=== PATIENT | female | born 1990 | race Asian ===

== ENCOUNTER 2018-03-31 18:13 | Inpatient (IN) | payer OTHER ==
[2018-03-31] MEDS ORDERED: LIDOCAINE 1% 300 MG/30 ML SDV SC PRN (19:47)
[2018-03-31] MEDS ORDERED: MISOPROSTOL 200 MCG TAB PR PRN (19:47)
[2018-03-31] MEDS ORDERED: OXYTOCIN/RINGERS LACTATE 1,000 ML IV PRN (19:47)
[2018-03-31] MEDS ORDERED: IBUPROFEN 600 MG TAB PO PRN (19:47)
[2018-03-31] MEDS ORDERED: EPSOM SALT 454 GM TP PRN (19:47)
[2018-03-31] MEDS ORDERED: LR 1,000 ML IV PRN (19:47)
[2018-03-31] MEDS ORDERED: OLIVE OIL 118 ML BTL MISC PRN (19:47)
[2018-03-31] MEDS ORDERED: TERBUTALINE SULFATE 1 MG/ML VIAL IV PRN (19:47)
[2018-03-31] MEDS ORDERED: LIDOCAINE 1% 300 MG/30 ML SDV ONE (19:57)
[2018-03-31] MEDS ORDERED: AMMONIA AROMATIC 1 EACH AMP IH ONE (19:58)
[2018-03-31] MEDS ORDERED: OXYTOCIN 10 UNIT/ML VIAL ONE (19:58)
[2018-03-31] MEDS ORDERED: MISOPROSTOL 200 MCG TAB ONE (19:58)
[2018-03-31] MEDS ORDERED: TERBUTALINE SULFATE 1 MG/ML VIAL ONE (19:58)
[2018-03-31] MEDS ORDERED: OLIVE OIL 118 ML BTL ONE (19:58)
[2018-03-31 20:08] LABS: PLATELET COUNT 154 10^3/uL (150-400)
--- NOTE | 2018-03-31 21:46 | PDGENHP ---
History and Physical - Chief Complaint SROM, labor - History of Present Illness 28 yo (one TAB in 2013) called this evening complaining of gush of clear fluid around 1700 and some new spotting noticed around that same time. She had been feeling more pelvic pressure throughout the day today. GBS negative. Presented to L&D and was found to be 5cm dilated. Uncomplicated first - Varicella non-immune. Labs: B positive Ab negative RPR NR Rubella IMMUNE Hep B neg HIV neg Standard negative Varicella NON-immune GC/C neg AFP normal Innatal normal XY male Glucola 123 GBS NEGATIVE History Information - Allergies/Home Medication List Allergies/Adverse Reactions: No Known Allergies Allergy (Unverified 03/31/18 18:19) I have personally reviewed and updated: family history, medical history, social history, surgical history - Past Medical History no pertinent PMH - Surgical History Additional surgical history: Elective 2013 - Family History Positive for: non-pertinent - Social History Smoking Status: Never smoked Alcohol Use: None Review of Systems Review of Systems: ROS: 10pt was reviewed & negative except for what was stated in HPI & below Physical Exam Physical Exam: Appears uncomfortable, rahul regularly Belly soft between contractions. Longitudinal lie. FHR 140s by intermittent doptone Initial NST 140s, mod dolores, accels present, no decels Lab Data & Imaging Review 03/31/18 19:50 WBC 8.08 10^3/uL (3.80-9.50) 03/31/18 19:50 RBC 3.95 10^6/uL (4.18-5.33) L 03/31/18 19:50 Hgb 12.8 g/dL (12.6-16.3) 03/31/18 19:50 Hct 37.4 % (38.0-47.0) L 03/31/18 19:50 MCV 94.7 fL (81.5-99.8) 03/31/18 19:50 MCH 32.4 pg (27.9-34.1) 03/31/18 19:50 MCHC 34.2 g/dL (32.4-36.7) 03/31/18 19:50 RDW 13.4 % (11.5-15.2) 03/31/18 19:50 Plt Count 154 10^3/uL (150-400) 03/31/18 19:50 MPV 12.9 fL (8.7-11.7) H 03/31/18 19:50 Neut % (Auto) 73.7 % (39.3-74.2) 03/31/18 19:50 Lymph % (Auto) 16.0 % (15.0-45.0) 03/31/18 19:50 Baca % (Auto) 9.2 % (4.5-13.0) 03/31/18 19:50 Eos % (Auto) 0.4 % (0.6-7.6) L 03/31/18 19:50 Baso % (Auto) 0.2 % (0.3-1.7) L 03/31/18 19:50 Nucleat RBC Rel Count 0.0 % (0.0-0.2) 03/31/18 19:50 Absolute Neuts (auto) 5.96 10^3/uL (1.70-6.50) 03/31/18 19:50 Absolute Lymphs (auto) 1.29 10^3/uL (1.00-3.00) 03/31/18 19:50 Absolute Monos (auto) 0.74 10^3/uL (0.30-0.80) 03/31/18 19:50 Absolute Eos (auto) 0.03 10^3/uL (0.03-0.40) 03/31/18 19:50 Absolute Basos (auto) 0.02 10^3/uL (0.02-0.10) 03/31/18 19:50 Absolute Nucleated RBC 0.00 10^3/uL (0-0.01) 03/31/18 19:50 Immature Gran % 0.5 % (0.0-1.1) 03/31/18 19:50 Immature Gran # 0.04 10^3/uL (0.00-0.10) 03/31/18 19:50 Membrane Rupture POSITIVE (NEGATIVE) H 03/31/18 18:27 Patient ABO/Rh B POSITIVE 03/31/18 19:50 Antibody Screen NEGATIVE 03/31/18 19:50 Assessment & Plan Assessment: 28 yo at 39w1d by DUSTIN of 04/06/18 - here with SROM, spontaneous labor. Initially 5cm on initial exam by RN. Labor: Expectant mgmt, will recheck in 2 hrs. GBS negative. Rh pos, Rubella immune. VZV non-immune, will need Varicella vaccine immediately PP and at 6 wks. REA
[2018-03-31] MEDS ORDERED: fentaNYL 100 MCG/2 ML INJ ONE (23:14)
[2018-03-31] MEDS ORDERED: fentaNYL 2MCG/ML/BUP 0.1% RTU 100 ML BAG EP ONE (23:14)
[2018-03-31] MEDS ORDERED: PHENYLEPHRINE HCL 100 MCG/ML SYR ONE (23:15)
[2018-03-31] MEDS ORDERED: BUPIVACAINE 0.25% 10 ML SDV ONE (23:15)
--- NOTE | 2018-03-31 23:59 | PREANESOB ---
Obstetric Pre-Anesthesia Info - General Info : 2 Para: 0 DUSTIN: 04/07/18 Gestational Age: 39 week(s) and 0 day(s) - Labor Status Labor Epidural: Yes Anesthesia Allergies/Adverse Reactions: Allergy/AdvReac Type Severity Reaction Status Date / Time No Known Allergies Allergy Unverified 03/31/18 18:19 Visit Medications: Generic Name Dose Route Start Last Admin Trade Name Freq PRN Reason Stop Dose Admin Lactated Ringer's 1,000 mls @ 0 mls/hr 03/31/18 19:47 Lr IV 04/01/18 19:46 PRN PRN SEE PROTOCOL CONDITIONS Protocol Per Protocol Oxytocin/Lactated Ringer's 1,000 mls @ 125 mls/hr 03/31/18 19:47 Pitocin 20 Units/Lr (Premix) IV PRN PRN Post bleeding Ibuprofen 600 mg 03/31/18 19:47 Motrin PO ONCE PRN post , pain Lidocaine HCl 300 mg 03/31/18 19:47 Lidocaine Hcl 1% SC 09/27/18 19:46 ONCE PRN episiotomy Magnesium Sulfate 454 gm 03/31/18 19:47 Epsom Salt TP 09/27/18 19:46 Q1H PRN perineal discomfort Misoprostol 800 - 1,000 mcg 03/31/18 19:47 Cytotec RI ONCE PRN Vaginal Atony/Bleeding [place] Oil 118 ml 03/31/18 19:47 Sweet Oil MISC 09/27/18 19:46 ONCE PRN perineal massage Terbutaline Sulfate 0.25 mg 03/31/18 19:47 Brethine IV 09/27/18 19:46 ONCE PRN Tachysystole Discontinued Medications Generic Name Dose Route Start Last Admin Trade Name Fresanchez PRN Reason Stop Dose Admin Ammonia (Aromatic Spirit) Confirm 03/31/18 19:58 Ammonia Aromatic Administered 03/31/18 19:59 Dose 1 each IH .STK-MED ONE Bupivacaine HCl Confirm 03/31/18 23:15 Sensorcaine 0.25% Sdv Administered 03/31/18 23:16 Dose 10 ml .ROUTE .STK-MED ONE Fentanyl Confirm 03/31/18 23:14 Sublimaze Administered 03/31/18 23:15 Dose 100 mcg .ROUTE .STK-MED ONE Fentanyl/Bupivacaine HCl Confirm 03/31/18 23:14 Fentanyl/Bupivacaine/Ns 2 Mcg/Ml 0.1% (Premix Administered 03/31/18 23:15 Dose 100 ml EP .STK-MED ONE Lidocaine HCl Confirm 03/31/18 19:57 Lidocaine Hcl 1% Administered 03/31/18 19:58 Dose 300 mg .ROUTE .STK-MED ONE Misoprostol Confirm 03/31/18 19:58 Cytotec Administered 03/31/18 19:59 Dose 1,000 mcg .ROUTE .STK-MED ONE [place] Oil Confirm 03/31/18 19:58 Sweet Oil Administered 03/31/18 19:59 Dose 118 ml .ROUTE .STK-MED ONE Oxytocin Confirm 03/31/18 19:58 Pitocin Administered 03/31/18 19:59 Dose 40 unit .ROUTE .STK-MED ONE Phenylephrine HCl Confirm 03/31/18 23:15 Neosynephrine Administered 03/31/18 23:16 Dose 1,000 mcg .ROUTE .STK-MED ONE Terbutaline Sulfate Confirm 03/31/18 19:58 Brethine Administered 03/31/18 19:59 Dose 1 mg .ROUTE .STK-MED ONE - Vital Signs Height/Weight (Nursing): Height 157 cm Weight 63.957 kg Labs: 03/31/18 19:50 Patient ABO/Rh B POSITIVE 03/31/18 19:50
[2018-04-01] MEDS ORDERED: METOCLOPRAMIDE 10 MG/2 ML VIAL IVP PRN (00:01)
[2018-04-01] MEDS ORDERED: ONDANSETRON 4 MG/2 ML VIAL IVP PRN (00:01)
[2018-04-01] MEDS ORDERED: PHENYLEPHRINE HCL 100 MCG/ML SYR IVP PRN (00:01)
--- NOTE | 2018-04-01 00:03 | PDANEPAE ---
ANE Review of Systems Review of Systems: ANE Patient History - Allergies Allergies/Adverse Reactions: No Known Allergies Allergy (Unverified 03/31/18 18:19) - Smoking Hx Smoking Status: Never smoked - Alcohol Use Alcohol Use: None ANE Labs/Vital Signs - Labs Result Diagrams: 03/31/18 19:50 - Vital Signs Height: 157 cm Weight: 63.957 kg ANE Physical Exam - Airway Neck exam: FROM Mallampati Score: Class 1 Mouth exam: normal dental/mouth exam - Pulmonary Pulmonary: no respiratory distress - Cardiovascular Cardiovascular: regular rate and rhythym - ASA Status ASA Status: II ANE Anesthesia Plan Anesthesia Plan: epidural Urgent/Emergent Case: Anes eval completed preop but documented later for safe timely pt care
[2018-04-01] MEDS ORDERED: LR 500 ML IV SCH (00:30)
[2018-04-01] MEDS ORDERED: fentaNYL 2MCG/ML/BUP 0.1% RTU 100 ML EP SCH (00:30)
[2018-04-01] MEDS ORDERED: LR 500 ML IV PRN (04:46)
--- NOTE | 2018-04-01 04:55 | OBPROG ---
Labor Progress Note Assessment/Plan: Assessment: 28 yo at 39w1d here with SROM and spontaneous labor. Initially felt to be complete by RN, had been pushing for the past 30 minutes when I was alerted to come check the patient. Odd exam - At this point has a swollen anterior cervix and I can feel cervix all the way around, I'd call her 890/0. Head applied to cervix, mild caput, position feels OT moving towards SHIRA with pushing. Will have her stop pushing, will add Pitocin and recheck in 2 hours. FHR has been rising, but still WNL, no maternal fever - fluid bolus now. JM Subjective/Intrapartum Course: 04/01/18 04:47 Comfortable with epidural, has been pushing for approximately 30 minutes. Objective: 03/31/18 19:50 Patient ABO/Rh B POSITIVE 03/31/18 19:50 - SVE Dilation (cm): 8 Effacement (%): 90 (Swollen anterior lip, mild caput) Station: 0 Membranes: SROM Amniotic Fluid Color: Bloody (Recently blood-tinged fluid) - Contraction Pattern Assessment Current Contraction Pattern: Regular - FHR Assessment Jo FHR (bpm): 155 FHR Pattern Variability: Moderate FHR Category: 2 Oxytocin Orders Assessment - Pre-Induction/Augmentation Assessment Gestational Age: 39 week(s) and 0 day(s) ICD10 Worksheet Patient Problems: Problems Problem Status Onset Labor without complication Acute - ICD10 Problem Qualifiers (1) Labor without complication
[2018-04-01] MEDS ORDERED: OXYTOCIN/RINGERS LACTATE 500 ML IV SCH (05:00)
--- NOTE | 2018-04-01 07:52 | OBPROG ---
Labor Progress Note Assessment/Plan: Assessment: IUP at 39w, SROM, SOOC on pit for some augment at 8cm but stopped due to tachysyst spont progress now Plan: complete at now pushing 04/01/18 07:49 Subjective/Intrapartum Course: 04/01/18 04:47 Comfortable with epidural, has been pushing for approximately 30 minutes. 04/01/18 07:50 pt comf - occas feels pressure. initially on exam had ant lip, 0to+1 station but with one push head is now below at +1station and complete. Pt pushed first time and down to +2 station. Objective: 03/31/18 19:50 Patient ABO/Rh B POSITIVE 03/31/18 19:50 - SVE Dilation (cm): 10 Effacement (%): 100 Station: +2 Membranes: SROM Amniotic Fluid Color: Bloody (Recently blood-tinged fluid) Dilation Complete Date: 04/01/18 Dilation Complete Time: 07:44 - Contraction Pattern Assessment Current Contraction Pattern: Regular (not on pit now. ctxns q 2-4 min) - FHR Assessment Jo FHR (bpm): 130 FHR Pattern Variability: Moderate FHR Category: 2 (variables with pushing with GBTBV, reassuring recovery) Oxytocin Orders Assessment - Pre-Induction/Augmentation Assessment Gestational Age: 39 week(s) and 0 day(s) ICD10 Worksheet Patient Problems: Problems Problem Status Onset Labor without complication Acute
--- NOTE | 2018-04-01 10:34 | OBDEL ---
Info Type: Vaginal Presentation at Delivery: Vertex L&D Analgesia/Anesthesia Type: Epidural GBS+: No Intrapartum Medications: Generic Name Dose Route Start Last Admin Trade Name Freq PRN Reason Stop Dose Admin Lactated Ringer's 1,000 mls @ 0 mls/hr 03/31/18 19:47 04/01/18 04:58 Lr IV 04/01/18 19:46 1,000 mls PRN PRN Administration SEE PROTOCOL CONDITIONS Protocol Per Protocol Oxytocin/Lactated Ringer's 500 mls @ 0 mls/hr 04/01/18 05:00 04/01/18 04:57 Pitocin 30 Units/Lr (Premix) IV 09/28/18 04:59 500 mls CONT ALBA Administration Protocol Per Protocol Discontinued Medications Generic Name Dose Route Start Last Admin Trade Name Freq PRN Reason Stop Dose Admin Ibuprofen 600 mg 03/31/18 19:47 04/01/18 10:10 Motrin PO 600 mg ONCE PRN Administration post , pain - Hospital Course Intrapartum: 04/01/18 04:47 Comfortable with epidural, has been pushing for approximately 30 minutes. 04/01/18 07:50 pt comf - occas feels pressure. initially on exam had ant lip, 0to+1 station but with one push head is now below at +1station and complete. Pt pushed first time and down to +2 station. Indications for Delivery: Spontaneous Labor, SROM Vaginal Delivery - Delivery Provider Delivery Physician/CNM: Cynthia Yuen - Labor and Delivery Onset of Contractions Date: 03/31/18 Onset of Contractions Time: 20:00 Onset of Contractions Type: Augmented (at 8 cm after LISA, SOOC initially - arrived at 5 cm) Rupture of Membranes Date: 03/31/18 Rupture of Membranes Time: 17:15 Rupture of Membranes Type: Spontaneous Amniotic Fluid Color: Clear, Bloody (Recently blood-tinged fluid) Dilation Complete Date: 04/01/18 Dilation Complete Time: 07:44 Placenta Delivery Date: 04/01/18 Placenta Delivery Time: 09:48 Total Hours of Labor: 13 Laceration: 1st Degree (bilateral periurethral, and lat vag duckworth bilat), 2nd Degree (perineal, not deep but stretched wide) Repair: 3-0, Vicryl Vaginal Sponge Count Correct: Yes Vaginal Needle Count Correct: Yes Vaginal Sweep Performed: Yes EBL: 400 Delivery Events: None - Medications Labor Augmentation/Induction Methods Used: Pitocin (at 8 cm, but stopped at 6: 30 due to tachysystole) Labor Augmentation/Induction Indication: Other (Specify) (dysfunctional labor pattern) Data DUSTIN: 04/07/18 Gestational Age: 39 week(s) and 1 day(s) Jo Delivery Date: 04/01/18 Delivery Time: 09:42 Sex of Infant: Male Score (1 Min): 7 Score (5 Min): 9 ICD10 Worksheet Patient Problems: Problems Problem Status Onset (spontaneous vaginal delivery) Acute
[2018-04-01] MEDS: ACETAMINOPHEN 325 MG TAB PO SCH ×2 (13:05→19:23)
[2018-04-01] MEDS: IBUPROFEN 600 MG TAB PO SCH ×2 (16:12→22:27)
[2018-04-02] MEDS: ACETAMINOPHEN 325 MG TAB PO SCH ×5 (00:47→22:53)
[2018-04-02] MEDS: IBUPROFEN 600 MG TAB PO SCH ×4 (04:36→22:53)
--- NOTE | 2018-04-02 11:33 | OBPP ---
Progress Note Assessment/Plan: Assessment: PPD1 s/p at 0945 yesterday AM. Uncomplicated 2nd degree tear and sidewall/ periurethral. Routine cares, home tomorrow. Will add bowel regimen this AM. Anemic - Ordered ferous sulfate BID. Rh pos, Rubella immune. JM Subjective/ Course: 04/02/18 11:47 Doing well this AM - pain well controlled. Some questions about milk coming in and many about how baby's doing. In general BF going okay. Would like to stay until tomorrow. Objective: 04/02/18 01:00 Patient ABO/Rh B POSITIVE 03/31/18 19:50 Temp Pulse Resp BP Pulse Ox 36.3 C 94 16 87/51 L 04/01/18 20:00 04/01/18 20:00 04/01/18 20:00 04/01/18 20:00 Uterine Position/Fundal Height: At Umbilicus Uterine Tone: Firm
[2018-04-02] MEDS ORDERED: POLYETHYLENE GLYCOL 3350 17 GM PKT PO PRN (11:34)
[2018-04-02] MEDS ORDERED: LACTULOSE 20 GM/30 ML UDCUP PO PRN (11:34)
[2018-04-02] MEDS ORDERED: MAGNESIUM HYDROXIDE 30 ML UDCUP PO PRN (11:34)
[2018-04-02] MEDS ORDERED: BISACODYL 10 MG SUPP PR PRN (11:34)
--- NOTE | 2018-04-02 15:22 | SOAPPROG ---
SOAP Progress Note Assessment/Plan: LISA patient, doing well Plan:No further F/U needed 04/02/18 15:21 Objective: Vital Signs Temp Pulse Resp BP Pulse Ox 36.3 C 94 16 87/51 L 04/01/18 20:00 04/01/18 20:00 04/01/18 20:00 04/01/18 20:00 Laboratory Results 04/02/18 01:00 04/01/18 04/02/18 04/03/18 05:59 05:59 05:59 Output Total 1575 Balance -1575 doing well ICD10 Worksheet Patient Problems: Problems Problem Status Onset (spontaneous vaginal delivery) Acute
--- NOTE | 2018-04-02 15:22 | POSTANESTH ---
Post Anesthetic Evaluation Cardiovascular Status: Similar to Pre-Op Cond Respiratory Status: Similar to Pre-op Cond. Level of Consciousness/Mental Status: Alert and Oriented Pain Control: Adequate, Prn Tx Ordered Nausea/Vomiting Control: Adequate, Prn Tx Ordered Complications Possibly Related to Anesthesia: None Noted
[2018-04-02] MEDS: FERROUS SULFATE 325 MG TAB PO SCH ×2 (17:16→22:53)
[2018-04-02] MEDS: SENNOSIDES/DOCUSATE SODIUM TAB PO SCH (22:53)
[2018-04-03] MEDS: ACETAMINOPHEN 325 MG TAB PO SCH ×2 (05:03→17:16)
[2018-04-03] MEDS: IBUPROFEN 600 MG TAB PO SCH ×2 (05:03→13:58)
--- NOTE | 2018-04-03 11:12 | OBPP ---
Progress Note Assessment/Plan: Assessment: 28 yo ppd# 2 s/p breast feeding and supplementing varicella non immune discharge instructions reviewed Plan: 04/03/18 11:10 Subjective/ Course: 04/02/18 11:47 Doing well this AM - pain well controlled. Some questions about milk coming in and many about how baby's doing. In general BF going okay. Would like to stay until tomorrow. 04/03/18 11:10 patient is doing well overall. pain is well controlled. denies headache and changes in vision. normal lochia. working with and nurses with breast feeding. discussed discharge precautions. may be discharged to [facility] if baby isnt discharged. Objective: 04/02/18 01:00 Patient ABO/Rh B POSITIVE 03/31/18 19:50 Temp Pulse Resp BP Pulse Ox 36.4 C 94 16 89/51 L 94 04/02/18 20:22 04/02/18 20:22 04/02/18 20:22 04/02/18 20:22 04/02/18 20:22 Physical Exam - Physical Exam Neck: non-tender, full range of motion, supple Respiratory: chest non-tender, lungs clear, normal breath sounds Cardiac/Chest: normal peripheral pulses, regular rate, rhythm Abdomen: normal bowel sounds, non-tender Extremities: normal range of motion, non-tender, normal inspection, normal capillary refill Skin: normal color, warm/dry Neuro/Psych: no motor/sensory deficits, alert, normal mood/affect, oriented x 3
--- NOTE | 2018-04-03 11:15 | OBGCSDC ---
General Delivery Information - General Info : 2 Para: 1 Abortions: 1 Type: Vaginal L&D Analgesia/Anesthesia Type: Epidural Admission Date: 04/01/18 Labs: Patient ABO/Rh B POSITIVE 03/31/18 19:50 Hct 28.8 % (38.0-47.0) L 04/02/18 01:00 - Hospital Course Intrapartum: 04/01/18 04:47 Comfortable with epidural, has been pushing for approximately 30 minutes. 04/01/18 07:50 pt comf - occas feels pressure. initially on exam had ant lip, 0to+1 station but with one push head is now below at +1station and complete. Pt pushed first time and down to +2 station. : 04/02/18 11:47 Doing well this AM - pain well controlled. Some questions about milk coming in and many about how baby's doing. In general BF going okay. Would like to stay until tomorrow. 04/03/18 11:10 patient is doing well overall. pain is well controlled. denies headache and changes in vision. normal lochia. working with and nurses with breast feeding. discussed discharge precautions. may be discharged to [facility] if baby isnt discharged. Vaginal - Delivery Provider Delivery Physician/CNM: Cynthia Yuen - Diagnosis Labor: Augmented (at 8 cm after LISA, SOOC initially - arrived at 5 cm) Rupture of Membranes Type: Spontaneous Amniotic Fluid Color: Clear, Bloody (Recently blood-tinged fluid) Laceration: 1st Degree (bilateral periurethral, and lat vag duckworth bilat), 2nd Degree (perineal, not deep but stretched wide) Repair: 3-0, Vicryl Delivery Events: None - Delivery EBL: [address] [place] Data DUSTIN: 04/07/18 Gestational Age: 39 week(s) and 3 day(s) Jo Delivery Date: 04/01/18 Delivery Time: 09:42 Sex of Infant: Male Weight (gm): 3876 kg Score (1 Min): 7 Score (5 Min): 9 Discharge Information - Discharge Information Condition: Good Instruction/Follow Up: Four Weeks (post mood check ), Six Weeks (post visit)
[2018-04-03] MEDS: FERROUS SULFATE 325 MG TAB PO SCH (13:57)
[2018-04-03] MEDS: SENNOSIDES/DOCUSATE SODIUM TAB PO SCH (13:58)
[2018-04-03 15:25] VITALS: BP 98/60
== END 2018-04-03 17:42 | disposition home or self-care (01) | DRG 807 ==
LOC: FLD 18:13 → OBSVTOIN 04-01 08:48 → FOB 04-01 13:30
PROVIDERS: ADMIT Obstetrics & Gynecology; ATTEND Obstetrics & Gynecology
DX: O70.1 Second degree perineal laceration during delivery (principal); O71.82 Other specified trauma to perineum and vulva; Z3A.39 39 weeks gestation of pregnancy; Z37.0 Single live birth
CPT/HCPCS: J2370; J2590; J3010; J3105

== ENCOUNTER → 2018-04-11 | Outpatient (CLI) | payer OTHER | LOC: FLACT 13:02 | PROVIDERS: ATTEND Obstetrics & Gynecology | DX: Z39.1 Encounter for care and examination of lactating mother (principal) | CPT/HCPCS: G0463 ==

== ENCOUNTER 2018-04-17 17:03 | Observation (INO) | payer OTHER ==
[2018-04-17] MEDS ORDERED: HYOSCYAMINE SULFATE 0.125 MG TAB PO ONE (17:19)
[2018-04-17] MEDS ORDERED: LIDOCAINE 2% VISCOUS 15 ML UDCUP PO ONE (17:19)
[2018-04-17] MEDS ORDERED: MAG HYDROX/AL HYDROX/SIMETH 30 ML UDCUP PO ONE (17:19)
--- NOTE | 2018-04-17 17:23 | EDPHY ---
H & P Stated Complaint: Upper GI Pain - x2 weeks - better with nexium - hx of gastritis Time Seen by Provider: 04/17/18 17:11 HPI/ROS: CHIEF COMPLAINT: Epigastric pain x 2weeks HISTORY OF PRESENT ILLNESS: 28-year-old female delivery date 04/01/2018, complaining of postprandial epigastric pain with no radiation since 04/06/18. Started taking proton pump inhibitor 3 days ago notes no improvement in symptoms. No nausea or vomiting. No radiation of pain. No back pain. No chest pain. No dyspnea. PRIMARY CARE PROVIDER:Dr. Yuen REVIEW OF SYSTEMS: 10 systems reviewed and negative with the exception of the elements mentioned in the history of present illness PAST MEDICAL & SURGICAL HISTORY: SOCIAL HISTORY: Nonsmoker. . No drug use. PHYSICAL EXAM (Prior to examination, patient consented to physical exam, hands were washed and my usual and customary physical exam procedures followed) 1) GENERAL: Well-developed, well-nourished, alert and oriented. Appears to be in no acute distress. 2) HEAD: Normocephalic, atraumatic 3) HEENT: Pupils equal, round, reactive to light bilaterally. Sclera anicteric. Nasopharynx, oropharynx, clear, no lesions. Dry mucous membranes. 4) NECK: Full range of motion, no meningeal signs. 5) LUNGS: Clear auscultation bilaterally, no wheezes, no rhonchi, no retractions. 6) HEART: Regular rate and rhythm, no murmur, no heave, no gallop. 7) ABDOMEN: No guarding, mild tenderness to palpation epigastrium, negative McBurney's, negative Morales's, negative Rovsing's, negative peritoneal sign, 8) MUSCULOSKELETAL: Moving all extremities, no focal areas of tenderness, no obvious trauma. No peripheral edema or discoloration. 9) BACK: No CVA tenderness, no midline vertebral tenderness, no fluctuance, no step-off, no obvious trauma, no visual or palpable abnormality. 10) SKIN: No rash, no petechiae. 11) Psychiatric: Patient is oriented X 3, there is no agitation. DIFFERENTIAL DIAGNOSIS: In no particular order, including but not limited to biliary colic, cholecystitis, peptic ulcer disease, pancreatitis, and gastroenteritis. This is a partial list of diagnoses considered. These considerations are based on history, physical exam, past history and reassessment. - Personal History LMP (Females 10-55): Over 28 Days Ago Current Tetanus Diphtheria and Acellular Pertussis (TDAP): Yes - Medical/Surgical History Hx Asthma: No Hx Chronic Respiratory Disease: No Hx Diabetes: No Hx Cardiac Disease: No Hx Renal Disease: No Hx Cirrhosis: No Hx Alcoholism: No Hx HIV/AIDS: No Hx Splenectomy or Spleen Trauma: No Other PMH: gastritis - Social History Smoking Status: Never smoked Constitutional: Initial Vital Signs Temperature (C) 36.8 C 04/17/18 17:07 Heart Rate 91 04/17/18 17:07 Respiratory Rate 18 04/17/18 17:07 Blood Pressure 101/63 04/17/18 17:07 O2 Sat (%) 95 04/17/18 17:07 O2 Delivery Mode Room Air Allergies/Adverse Reactions: No Known Allergies Allergy (Unverified 03/31/18 18:19) Home Medications: Medication Instructions Recorded NK [No Known Home Meds] 04/01/18 Medical Decision Making - Diagnostics Imaging Results: Imaging Impressions Abdomen Ultrasound 04/17/18 17:19 Impression: 1. Cholelithiasis with gallstones filling the gallbladder. Mild gallbladder wall thickening. Consider chronic cholecystitis. Findings discussed with Ricardo CAMP at 18:06 hour, 04/17/2018. ED Course/Re-evaluation: 5:24 p.m.: Care of patient under supervision of secondary supervising physician Dr Bridger Haley with whom I discussed case. Patient was sent from her primary care provider's office for concerns over hypertension, systolic of 80 at the office. Currently systolic of 101 with no complaints of dizziness, lightheadedness, syncope near syncope. Complaining of postprandial epigastric pain which may be related to gallbladder or gastritis. No complaints of lower abdominal pain, no fever or chills, no vaginal bleeding, no urinary complaints. Doubt endometritis. Will obtain ultrasound of the gallbladder as well as check laboratory studies administer GI cocktail. Doubt acute surgical abdominal pathology. 626 pm: Consultation Dr. Kevin Helton who will evaluate patient 8:00 p.m.: Dr. Kevin Helton has evaluated the patient, is planning on taking the patient to the operating room tomorrow morning. - Data Points Laboratory Results: Laboratory Results 04/17/18 17:30 04/17/18 17:30 04/17/18 04/17/18 04/17/18 17:30 17:30 17:30 WBC 7.71 10^3/uL 10^3/uL (3.80-9.50) RBC 4.17 10^6/uL L 10^6/uL (4.18-5.33) Hgb 13.5 g/dL g/dL (12.6-16.3) Hct 40.2 % % (38.0-47.0) MCV 96.4 fL fL (81.5-99.8) MCH 32.4 pg pg (27.9-34.1) MCHC 33.6 g/dL g/dL (32.4-36.7) RDW 12.8 % % (11.5-15.2) Plt Count 363 10^3/uL 10^3/uL (150-400) MPV 11.3 fL fL (8.7-11.7) Neut % (Auto) 73.0 % % (39.3-74.2) Lymph % (Auto) 17.8 % % (15.0-45.0) [place] % (Auto) 7.8 % % (4.5-13.0) Eos % (Auto) 1.0 % % (0.6-7.6) Baso % (Auto) 0.1 % L % (0.3-1.7) Nucleat RBC Rel Count 0.0 % % (0.0-0.2) Absolute Neuts (auto) 5.63 10^3/uL 10^3/uL (1.70-6.50) Absolute Lymphs (auto) 1.37 10^3/uL 10^3/uL (1.00-3.00) Absolute Monos (auto) 0.60 10^3/uL 10^3/uL (0.30-0.80) Absolute Eos (auto) 0.08 10^3/uL 10^3/uL (0.03-0.40) Absolute Basos (auto) 0.01 10^3/uL L 10^3/uL (0.02-0.10) Absolute Nucleated RBC 0.00 10^3/uL 10^3/uL (0-0.01) Immature Gran % 0.3 % % (0.0-1.1) Immature Gran # 0.02 10^3/uL 10^3/uL (0.00-0.10) Sodium 141 mEq/L mEq/L (135-145) Potassium 3.9 mEq/L mEq/L (3.5-5.2) Chloride 109 mEq/L mEq/L (97-110) Carbon Dioxide 23 mEq/l mEq/l (22-31) Anion Gap 9 mEq/L mEq/L (6-14) BUN 11 mg/dL mg/dL (7-23) Creatinine 0.5 mg/dL L mg/dL (0.6-1.0) Estimated GFR > 60 Glucose 94 mg/dL mg/dL (70-100) Calcium 9.6 mg/dL mg/dL (8.5-10.4) Total Bilirubin 0.5 mg/dL mg/dL (0.1-1.4) Conjugated Bilirubin 0.4 mg/dL mg/dL (0.0-0.5) Unconjugated Bilirubin 0.1 mg/dL mg/dL (0.0-1.1) AST 254 IU/L H IU/L (14-46) ALT 185 IU/L H IU/L (9-52) Alkaline Phosphatase 301 IU/L H IU/L (38-126) Total Protein 6.6 g/dL g/dL (6.3-8.2) Albumin 4.0 g/dL g/dL (3.5-5.0) Lipase 163 IU/L IU/L (23-300) Beta HCG, Qual NEGATIVE Medications Given: Discontinued Medications Al Hydroxide/Mg Hydroxide (Maalox Susp) 30 ml PO ONCE ONE Stop: 04/17/18 17:20 Last Admin: 04/17/18 17:29 Dose: 30 ml Hyoscyamine Sulfate (Levsin, Hyomax-Sl) 0.25 mg PO ONCE ONE Stop: 04/17/18 17:20 Last Admin: 04/17/18 17:28 Dose: 0.25 mg Lidocaine (Lidocaine 2% Viscous) 15 ml PO ONCE ONE Stop: 04/17/18 17:20 Last Admin: 04/17/18 17:29 Dose: 15 ml Departure - Departure Disposition: [facility] Clinical Impression: Cholelithiasis with cholecystitis Condition: Fair Referrals: NONE *PRIMARY CARE P,. [Primary Care Provider] - As per Instructions
[2018-04-17 17:43] LABS: PLATELET COUNT 363 10^3/uL (150-400)
[2018-04-17] MEDS ORDERED: ONDANSETRON 4 MG/2 ML VIAL IVP PRN (20:08)
[2018-04-17] MEDS ORDERED: LR 1,000 ML IV SCH (20:30)
[2018-04-17] MEDS: PANTOPRAZOLE SODIUM 40 MG VIAL IVP SCH (20:57)
--- NOTE | 2018-04-17 21:17 | GHP ---
DATE OF ADMISSION: 04/17/2018 ADMISSION DIAGNOSIS: Acute on chronic cholecystitis with cholelithiasis. HISTORY: The patient is a 28-year-old [place] female who gave on 04/01. She has been having a bdominal discomfort for sometime. Eleven years ago, she underwent an upper endoscopy and was diagnos ed at that point as having a chronic gastritis. She started developing a postprandial, colicky, righ n-isuxg-cpztypgy pain that radiated through her back on April 06. She is presumed this was due to her gastritis as it was subxiphoid in location. PPIs were tried, but without benefit. She was se en by her family doctor today, at that point, she had a systolic of 80 and was referred to the [facility] for evaluation. She came to the ER, her systolic was over 100 and she was not orthostatic. Labor atories revealed an AST of 254, an ALT of 185, alkaline phosphatase of 301, with a normal bilirubin. Ultrasound showed a gallbladder full of stones, but no sonographically positive Morales sign. Her wh ite count was 7.71, hematocrit is 40, platelet count is 363, creatinine 0.5, BUN of 11. I was asked to come see her for the possibility of offering her an elective cholecystectomy. SOCIAL HISTORY: She does not smoke. She does not drink. ALLERGIES: She has no known drug allergies. PAST SURGICAL HISTORY: She has had no prior surgery. She has had 1 vaginal . PAST MEDICAL HISTORY: There is no history of rheumatic fever, tuberculosis, hepatitis, or transfusio ns. REVIEW OF SYSTEMS: She wears lenses for visual correction. She has a history of gastritis as mentio eleazar above. There are no limits on her activities. No history of steroid use. PHYSICAL EXAMINATION: GENERAL: She is awake and alert, but quite anxious. NEUROLOGIC: She is oriented to person, place, and time. Sunbright Coma Scale is 15. There are no foc al lateralizing neurologic findings. HEENT: Her skull is normocephalic and atraumatic. NECK: Unremarkable. There are no carotid bruits. Thyroid is not enlarged. LYMPHATIC: There is no cervical, supraclavicular, axillary, or inguinal lymphadenopathy. CHEST: Back is unremarkable. Lungs are clear to auscultation. CARDIAC: Shows S1, S2 to be normal. ABDOMEN: She is not tender with cough at this point, note, she has received narcotics. To palpation , left upper quadrant is 1 on a scale of 1 to 10, left mid abdomen is 1, left lower quadrant is 1, ep igastrium is 2, periumbilical area is 1, suprapubic area is 1, right upper quadrant is 2, right mid a bdomen is 1, right lower quadrant is 1. There is no Morales sign to my examination at this point. A long discussion was carried out regarding the gallstones. She grew up in [facility] and came to the [facility] 2 years ago. It is unlikely that she has a parasitic issue. Note is made there i s a strong family history on her father's side of gallstones. Her indices are not concerning for hem oglobinopathy. I presume these are cholesterol stones and not calcium bilirubinate stones. We talke d about potential need for ERCP. I do not feel that we need to do that preoperatively as there is no evidence of obstructive findings. I will plan to bring her into the hospital to try to settle down overnight with antibiotics, fluids. Followup laboratories will be obtained in the morning. An urgent cholecystectomy will be performed. Cholangiogram be considered. /[id number]/MODL
[2018-04-17] MEDS: ACETAMINOPHEN 500 MG TAB PO SCH (22:26)
[2018-04-17] MEDS: KETOROLAC 15 MG/1 ML SDV IVP SCH (23:57)
[2018-04-18 05:28] LABS: PLATELET COUNT 309 10^3/uL (150-400)
[2018-04-18] MEDS: ACETAMINOPHEN 500 MG TAB PO SCH ×2 (06:03→14:24)
[2018-04-18] MEDS: KETOROLAC 15 MG/1 ML SDV IVP SCH ×2 (06:05→12:48)
--- NOTE | 2018-04-18 08:46 | SOAPPROG ---
SOAP Progress Note Assessment/Plan: PAD#1 04/18/2018 Assessment: Improved, VSS, Transaminase elevation resolving. No Morales's sign Plan: Would like to delay surgery to stockpile breast milk supply. Will try clear liquids/bentyl, if successful - will discharge Subjective: I feel better Objective: Vital Signs Temp Pulse Resp BP Pulse Ox 36.8 C 61 14 90/47 L 95 04/18/18 04:00 04/18/18 04:00 04/18/18 04:00 04/18/18 04:00 04/18/18 04:00 Laboratory Results 04/18/18 04:39 04/18/18 04:39 04/17/18 04/18/18 04/19/18 05:59 05:59 05:59 Intake Total 867 Balance 867 - Time Spent With Patient Time Spent With Patient: 15 Physical Exam - Physical Exam General Appearance: WD/WN, alert, no apparent distress Neck: full range of motion Respiratory: chest non-tender, lungs clear, normal breath sounds Cardiac/Chest: regular rate, rhythm Abdomen: normal bowel sounds, non-tender, soft Pelvic Exam: deferred Rectal: deferred Back: Normal inspection Skin: normal color, warm/dry Neuro/Psych: no motor/sensory deficits, alert, normal mood/affect, oriented x 3 ICD10 Worksheet Patient Problems: Problems Problem Status Onset Cholelithiasis with cholecystitis Acute (spontaneous vaginal delivery) Acute
[2018-04-18] MEDS ORDERED: DICYCLOMINE 10 MG CAP PO PRN (08:49)
[2018-04-18] MEDS: PANTOPRAZOLE SODIUM 40 MG VIAL IVP SCH (09:12)
[2018-04-18 12:53] VITALS: BP 107/51
--- NOTE | 2018-04-18 17:13 | ASMTCMCOM ---
CM Note CM Note Notes: Spoke w/RN, pt is well supported and has no needs. She is delaying surgery to stockpile breastmilk. She will dc home w/support of . DC Plan: Independent Date Signed: 04/18/2018 05:13 PM Electronically Signed By:Aileen Calderon RN
--- NOTE | 2018-04-19 04:58 | GDS ---
DISCHARGE DIAGNOSIS: Cholelithiasis with chronic cholecystitis and acute biliary colic (resolved). DISPOSITION: Home, self-care. CONDITION: Fair. DIET RECOMMENDATIONS: Low fat, in other words, less than 20% of the calories as fat. Texture is unr emarkable. DISCHARGE MEDICATIONS: Tylenol 1000 mg every 8 hours. She will use Bentyl 10 mg every 8 hours as ne eded for spasms. If a spasm is to occur, she is to take the pill and lie on her right side in the fe neetu position. If pain is not resolved within 2 hours, she is to return to the ER for re-evaluation. She is to continue her vitamins. She will use Colace 100 mg twice a day for constipation. She will use Nexium 40 mg daily and Tums 500 mg every 4 hours as needed. ACTIVITY: She is to pump and store breast milk against future needs (surgery). She is to follow up with Dr. Remi Colin' office and will make an appointment for an elective cholecystectomy in the nj xt 3 weeks. HOSPITAL COURSE: The patient was admitted. There was no elevation of her bilirubin. There was, how ever, a mild elevation of her alkaline phosphatase, and her transaminases were elevated approximately 5 times normal. Overnight with n.p.o. status and antibiotics, her transaminases dropped to only 2 t imes normal. She has done well with clear liquids and has only minimal right upper quadrant pain, bu t no distinct Morales sign. She wishes to postpone surgery at this time because of need to accumulate milk supply for her (April 01). She understands that there is a very high chance that e will recurrent episodes of biliary colic. She will use Bentyl as needed. We hope to do a cholecys tectomy sometime in the next 3 weeks. /[id number]/MODL
== END 2018-04-18 17:19 | disposition home or self-care (01) ==
LOC: F3E 21:27
PROVIDERS: ADMIT Surgery; ATTEND Surgery
DX: O99.63 Diseases of the digestive system complicating the puerperium (principal); K80.12 Calculus of gallbladder with acute and chronic cholecystitis without obstruction
CPT/HCPCS: 76705; 96375; 96376; 99285; G0378; J0690; J1885